=== PATIENT | female | born 1945 | race Caucasian/White ===

== ENCOUNTER → 2019-09-01 | Outpatient (CLI) | payer MEDICARE, OTHER | END | disposition home or self-care (01) | LOC: RAD 09:40 | PROVIDERS: ATTEND Internal Medicine Gastroenterology | DX: K30 Functional dyspepsia (principal); K22.4 Dyskinesia of esophagus; R14.2 Eructation; R13.19 Other dysphagia; E03.9 Hypothyroidism, unspecified; I10 Essential (primary) hypertension; E78.00 Pure hypercholesterolemia, unspecified; I25.10 Atherosclerotic heart disease of native coronary artery without angina pectoris; K57.90 Diverticulosis of intestine, part unspecified, without perforation or abscess without bleeding; M18.0 Bilateral primary osteoarthritis of first carpometacarpal joints; E89.41 Symptomatic postprocedural ovarian failure; Z86.010 Personal history of colon polyps; Z92.83 Personal history of failed moderate sedation | CPT/HCPCS: 78264; A9541 ==